=== PATIENT | male | born 1950 | race Two or more races ===

== ENCOUNTER 2021-06-01 11:45 | Inpatient (IN) | payer OTHER ==
[~2021-06-01] VITALS: Ht 175.3 cm; Wt 95.3 kg
[2021-06-01] MEDS ORDERED: VASOTEC20 M1 PO (13:29)
[2021-06-01] MEDS ORDERED: ZOCOR40 MG PO (13:29)
[2021-06-10] MEDS ORDERED: HYOSCYAMINE0.125 M1 SL (11:25)
[2021-06-10] MEDS ORDERED: OXYC1TAB9 PO (11:25)
== END 2021-06-10 13:40 | disposition home or self-care (01) | DRG 330 ==
LOC: O/R 06-07 10:10 → SURH 06-07 10:10 → LDR 06-07 11:45 → SURH 06-07 15:58 → LDR 06-07 19:30 → SURH 06-10 13:40
PROVIDERS: ADMIT Surgery; ATTEND Surgery
PROC: 0DBP4ZZ Excision of Rectum, Percutaneous Endoscopic Approach (ICD-10-PCS; 2021-06-07)
PROC: 07BB4ZX Excision of Mesenteric Lymphatic, Percutaneous Endoscopic Approach, Diagnostic (ICD-10-PCS; 2021-06-07)
PROC: 0DTN4ZZ Resection of Sigmoid Colon, Percutaneous Endoscopic Approach (ICD-10-PCS; principal; 2021-06-07 19:30)
DX: C18.7 Malignant neoplasm of sigmoid colon (principal); K92.1 Melena; R59.0 Localized enlarged lymph nodes; R73.03 Prediabetes